=== PATIENT | female | born 1955 | race Two or more races ===

== ENCOUNTER 2019-11-20 08:36 | Emergency (ER) | payer SELFPAY ==
[2019-11-20] MEDS ORDERED: IV NORMAL SALINE 1,000ML 1,000 ML IV SCH (08:46)
--- NOTE | 2019-11-20 08:50 | PHYS DOC ---
Adult General Chief Complaint Chief Complaint: abdominal pain [facility] HPI Patient is a 64-year-old female who presents with complaint of right upper quadrant abdominal pain that radiates into her back that started at about 5:00 this morning. Patient reports some nausea but is had no vomiting. She also denies any diarrhea. Patient has had no chest pain or shortness of breath. She has also had no fever. Patient indicates that she has never had pain like this before. She rates pain as severe and states that nothing improves the pain.[] Review of Systems Review of Systems Constitutional: Denies fever or chills [] Respiratory: Denies cough or shortness of breath [] Cardiovascular: No additional information not addressed in HPI [] GI: Complains of abdominal pain with nausea. Denies vomiting or diarrhea [] Musculoskeletal: Complains of right sided mid back pain [] Integument: Denies rash or skin lesions [] Neurologic: Denies headache, focal weakness or sensory changes [] All other systems were reviewed and found to be within normal limits, except as documented in this note. Physical Exam Physical Exam Constitutional: Well developed, well nourished, in moderate distress, non-toxic appearance. [] HENT: Normocephalic, atraumatic, bilateral external ears normal, oropharynx moist, no oral exudates, nose normal. [] Eyes: PERRLA, EOMI, conjunctiva normal, no discharge. [] Neck: Normal range of motion, no tenderness, supple, no stridor. [] Cardiovascular: Regular rate and rhythm[] Lungs & Thorax: Bilateral breath sounds clear to auscultation [] Abdomen: Bowel sounds normal, soft, with moderate right upper quadrant tenderness. [] Skin: Warm, dry, no erythema, no rash. [] Extremities: No tenderness, no cyanosis, no clubbing, ROM intact. [] Neurologic: Alert and oriented X 3, no focal deficits noted. [] EKG EKG [] Radiology/Procedures Radiology/Procedures [] Impressions: CT ABD PELV W/ IV CONTRST ONLY Indication: Upper abdominal pain. Exposure: One or more of the following individualized dose reduction techniques were utilized for this examination: 1. Automated exposure control 2. Adjustment of the mA and/or kV according to patient size 3. Use of iterative reconstruction technique. Technique: Intravenous contrast was given. No oral contrast per request. Comparison: None. Correlation with ultrasound of earlier today. FINDINGS: Lung bases are clear. Liver and spleen unremarkable. Pancreas is difficult to delineate from adjacent unopacified bowel, particularly at the pancreatic head, but no definite abnormality. No evidence of adrenal mass. Kidneys demonstrate symmetric enhancement without evidence of hydronephrosis or focal mass. Note there is image degradation due to patient movement during the exam. Gallbladder is mildly distended. Question gallbladder wall thickening but that may be exaggerated by the motion degradation. No definite calcified stone. Note that the gallbladder was evaluated on ultrasound of earlier today. No evidence of choledocholithiasis. Common bile duct measures at least 8 mm in diameter, also evaluated on ultrasound earlier today. The aorta is nonaneurysmal. No significant lymph node enlargement is identified. Stomach is not distended. No significant small bowel distention. Scattered colonic diverticula. No evidence of acute colitis. A structure which may represent normal appendix is identified, but not definite. No evidence of ascites or pneumoperitoneum. Urinary bladder demonstrates no significant wall thickening, and is mildly distended. No evidence of a pelvic mass. Mild degenerative changes of the spine. Vertebral body height intact. No evidence of acute fracture or aggressive bone destruction. IMPRESSION: 1. Mild gallbladder distention. Question gallbladder wall thickening, although that may be exaggerated by motion degradation. 2. Otherwise no definite acute findings. Electronically signed by: Omar White MD (11/20/2019 11:38 AM) [facility] PROCEDURE: ABDOMEN LTD Examination: Ultrasound right upper quadrant abdomen limited HISTORY: History of pain COMPARISON: None available. Findings: The visualized pancreas grossly appears unremarkable. Mild increased echogenicity identified in the liver likely hepatic steatosis. The liver length measures 16 cm. The gallbladder is mildly distended. The common bile duct measures 9 mm in diameter. The right kidney measures 10.9 cm in length. IMPRESSION: 1. Hepatic steatosis. 2. Dilated common bile duct. . Correlate with lab values. Electronically signed by: Junito Bray MD (11/20/2019 10:46 AM) [facility] Course & Med Decision Making Course & Med Decision Making Pertinent Labs and Imaging studies reviewed. (See chart for details) [] Dragon Disclaimer Dragon Disclaimer This electronic medical record was generated, in whole or in part, using a voice recognition dictation system. Departure Departure: Impression: Primary Impression: Right upper quadrant abdominal pain Disposition: 01 HOME, SELF-CARE Condition: STABLE Patient Instructions: Abdominal Pain, HIDA (Hepatobilliary) Scan Scripts Hydrocodone Bit/Acetaminophen (NORCO 5-325 TABLET) 1 Each Tablet 1 TAB PO PRN Q6HRS PRN for PAIN, #12 TAB 0 Refills Prov: DESIRAE RUTHERFORD Jr. DO 11/20/19 Ondansetron (ONDANSETRON ODT) 4 Mg Tab.rapdis 1 TAB PO PRN Q6-8HRS PRN for NAUSEA, #12 TAB Prov: DESIRAE RUTHERFORD Jr. DO 11/20/19 DESIRAE RUTHERFORD Jr. DO Nov 20, 2019 08:50
[2019-11-20 08:56] VITALS: BP 148/88
[2019-11-20] MEDS ORDERED: HYDROmorphone PF 1 MG/ML DISP.SYRIN IV/SQ PRN (09:00)
[2019-11-20] MEDS ORDERED: ONDANSETRON PF 4 MG/2 ML VIAL. IVP ONE (09:00)
[2019-11-20 09:10] LABS: BASO # 0.1 x10^3/uL (0.0-0.2); BASO % 1 % (0-3); EOS # 0.1 x10^3/uL (0.0-0.7); EOS % 1 % (0-3); HEMATOCRIT 45.1 % (36.0-47.0); HEMOGLOBIN 15.1 g/dL (12.0-15.5); LYMPH # 2.3 x10^3/uL (1.0-4.8); LYMPH % 16 % (24-48); MEAN CORPUSCULAR HEMOGLOBIN 30 pg (25-35); MEAN CORPUSCULAR HGB CONC 33 g/dL (31-37); MEAN CORPUSCULAR VOLUME 91 fL (79-100); MONO # 0.7 x10^3/uL (0.0-1.1); MONO % 5 % (0-9); NEUT % 78 % (31-73); PLATELET COUNT 266 x10^3/uL (140-400); RED BLOOD COUNT 4.98 x10^6/uL (3.50-5.40); RED CELL DISTRIBUTION WIDTH 13.1 % (11.5-14.5); WHITE BLOOD COUNT 14.1 x10^3/uL (4.0-11.0)
[2019-11-20 09:17] LABS: CREATININE 0.9 mg/dL (0.6-1.0); GFR 62.8; POTASSIUM 3.8 mmol/L (3.5-5.1)
[2019-11-20 09:23] LABS: ALBUMIN 3.6 g/dL (3.4-5.0); ALBUMIN/GLOBULIN RATIO 0.8 (1.0-1.7); TOTAL BILIRUBIN 0.6 mg/dL (0.2-1.0); TOTAL PROTEIN 8.1 g/dL (6.4-8.2)
--- NOTE | 2019-11-20 10:49 | RAD ---
Examination: Ultrasound right upper quadrant abdomen limited HISTORY: History of pain COMPARISON: None available. Findings: The visualized pancreas grossly appears unremarkable. Mild increased echogenicity identified in the liver likely hepatic steatosis. The liver length measures 16 cm. The gallbladder is mildly distended. The common bile duct measures 9 mm in diameter. The right kidney measures 10.9 cm in length. IMPRESSION: 1. Hepatic steatosis. 2. Dilated common bile duct. . Correlate with lab values. Electronically signed by: Junito Bray MD (11/20/2019 10:46 AM) [facility]
[2019-11-20] MEDS ORDERED: IOHEXOL 300 MG/ML 75 ML VIAL. IV ONE (11:15)
--- NOTE | 2019-11-20 11:41 | RAD ---
CT ABD PELV W/ IV CONTRST ONLY Indication: Upper abdominal pain. Exposure: One or more of the following individualized dose reduction techniques were utilized for this examination: 1. Automated exposure control 2. Adjustment of the mA and/or kV according to patient size 3. Use of iterative reconstruction technique. Technique: Intravenous contrast was given. No oral contrast per request. Comparison: None. Correlation with ultrasound of earlier today. FINDINGS: Lung bases are clear. Liver and spleen unremarkable. Pancreas is difficult to delineate from adjacent unopacified bowel, particularly at the pancreatic head, but no definite abnormality. No evidence of adrenal mass. Kidneys demonstrate symmetric enhancement without evidence of hydronephrosis or focal mass. Note there is image degradation due to patient movement during the exam. Gallbladder is mildly distended. Question gallbladder wall thickening but that may be exaggerated by the motion degradation. No definite calcified stone. Note that the gallbladder was evaluated on ultrasound of earlier today. No evidence of choledocholithiasis. Common bile duct measures at least 8 mm in diameter, also evaluated on ultrasound earlier today. The aorta is nonaneurysmal. No significant lymph node enlargement is identified. Stomach is not distended. No significant small bowel distention. Scattered colonic diverticula. No evidence of acute colitis. A structure which may represent normal appendix is identified, but not definite. No evidence of ascites or pneumoperitoneum. Urinary bladder demonstrates no significant wall thickening, and is mildly distended. No evidence of a pelvic mass. Mild degenerative changes of the spine. Vertebral body height intact. No evidence of acute fracture or aggressive bone destruction. IMPRESSION: 1. Mild gallbladder distention. Question gallbladder wall thickening, although that may be exaggerated by motion degradation. 2. Otherwise no definite acute findings. Electronically signed by: Omar White MD (11/20/2019 11:38 AM) [facility]
[2019-11-20] MEDS ORDERED: HYDR-3165 PO (12:07)
[2019-11-20] MEDS ORDERED: ONDA4TAB12 PO (12:07)
--- NOTE | 2019-11-21 06:41 | EKG ---
[address] [address] Test Date: 2019-11-20 Test Time: 09:01:09 Pat Name: LILIYA NIEVES Department: Room: Gender: F Binding Printer: : [id number] Requested By: DESIRAE RUTHERFORD Order Number: [id number] Reading MD: Measurements Intervals [place] Rate: 78 P: 41 NM: 146 QRS: 46 QRSD: 74 T: 23 QT: 388 QTc: 446 Interpretive Statements SINUS RHYTHM QRS(T) CONTOUR ABNORMALITY CONSIDER ANTEROSEPTAL MYOCARDIAL DAMAGE POSSIBLY ABNORMAL ECG RI6.01 No previous ECG available for comparison
== END 2019-11-20 12:22 | disposition home or self-care (01) ==
LOC: EDBD 08:36 → ER 08:36
DX: R10.11 Right upper quadrant pain (principal); R11.0 Nausea; M54.89 Other dorsalgia
CPT/HCPCS: 36415; 74177; 76705; 80053; 83690; 85025; 93005; 96374; 96375; 99285; J1170; J2405; Q9967; J7030